=== PATIENT | female | born 1945 | race Caucasian/White ===

== ENCOUNTER 2024-08-27 03:54 | Emergency (ER) | payer MEDICARE, SELFPAY ==
[2024-08-27 03:56] VITALS: BMI 16.4
--- NOTE | 2024-08-27 04:15 | EKG_ITS ---
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
[2024-08-27 04:28] VITALS: BP 136/73; PULSE 90; RESP 20; TEMP 36.6; O2SAT 93
--- NOTE | 2024-08-27 04:33 | XR_ITS ---
Examination: PA chest single view Technique: Upright PA chest single view Exam date 9: August 27, 2024 0442 hrs. Comparison 04/24/2024 Indications: Chest pain body aches today. Findings: Extensive interstitial nodular densities throughout both lungs again noted Normal heart size Hyperexpansion Significant osteopenia Impression: Again noted extensive interstitial nodular disease throughout the lungs, please see the CT chest report December 25, 2023, consider repeat high resolution CT chest without contrast to assess progression of this parenchymal disease Differential would include chronic infiltrates, active pneumonia, underlying metastatic pulmonary nodular disease not excluded
--- NOTE | 2024-08-27 04:34 | PD.EDADULT ---
ED General RME/HPI General Chief complaint: General Adult/Misc Complain Stated complaint: chest pain/body pain x 1 day. Time Seen by Provider: 08/27/24 04:14 Arrival date/time: 08/27/24 03:54 RME / HPI RME / HPI narrative: Dr. Rome?s Main ED Evaluation: 79yo female with pmhx HTN, bronchiectasis presents to the ED for complaints of generalized body aches, chest pain, and a headache x 3 days. Patient states her symptoms have been persistent for the last 3 days and have not gotten any better, so she came in for evaluation. Patient reports her chest pain radiates to her back. She reports associated chronic cough and chills. She denies any fever, sweating, runny nose, sore throat or any other associated symptoms. Patient states she usually does her breathing treatments BID at home, but hasn't in the last 10 days due to having family problems. Related Data Home Medications ?Medication ?Instructions ?Recorded ?Confirmed alprazolam 0.25 mg tablet 0.25 mg PO QDAY PRN Anxiety 06/07/22 12/26/23 linaclotide 72 mcg capsule 72 mcg PO QDAY 06/07/22 12/26/23 (Linzess) olmesartan 20 mg tablet 10 mg PO QDAY 06/07/22 12/25/23 rivaroxaban 15 mg tablet (Xarelto) 15 mg PO QPM 06/07/22 12/25/23 tiotropium 2.5 mcg-olodaterol 2.5 2 inh inhalation QDAY 06/07/22 12/26/23 mcg/actuation mist for inhalation (Stiolto Respimat) albuterol sulfate 2.5 mg/3 mL 2.5 mg inhalation BID 12/25/23 12/26/23 (0.083 %) solution for nebulization amiodarone 200 mg tablet 100 mg PO QDAY 12/25/23 12/25/23 aspirin 81 mg capsule 81 mg PO QDAY 12/25/23 12/25/23 Allergies Allergy/AdvReac Type Severity Reaction Status Date / Time azithromycin Allergy Severe Nausea Verified 09/25/23 14:10 dexamethasone [From Decadron] Allergy Severe Wheezing Verified 09/25/23 14:10 hydrocortisone Allergy Severe Wheezing Verified 09/25/23 14:10 [From Solu-Cortef] levofloxacin [From Levaquin] Allergy Severe Vomiting Verified 09/25/23 14:10 methylprednisolone Allergy Severe Wheezing Verified 09/25/23 14:10 prednisone Allergy Severe Wheezing Verified 09/25/23 14:10 Review of Systems Review of Systems Systems Reviewed: All systems reviewed, normal except as documented Past Medical History Past Medical History CARDIAC: Positive Myocardial Infarction, Atrial Fibrillation and Hypertension; Negative Cardiac Disorders or Congestive Heart Failure RESPIRATORY: Positive Chronic Obstructive Pulmonary Disease (COPD); Negative Asthma GASTROINTESTINAL: Positive Gastrointestinal Disorders (constipation) GENITOURINARY: Negative Renal Disease ENDOCRINE: Negative Diabetes Mellitus Type 1 or Diabetes Mellitus Type 2 HEMATOLOGIC: Negative Sickle Cell Disease PSYCHO/SOCIAL: Positive Anxiety Surgical History SURGICAL: Positive Cardiac Surgery Social History SMOKING STATUS: Never smoker ED Exam Narrative Physical exam: GENERAL APPEARANCE: alert and oriented x 4, well-developed, well-nourished, no acute distress VITALS: All vitals were reviewed and the pulse ox is 93% on room air, which is normal according to my interpretation. HEENT: Normocephalic, atraumatic; pupils equal, round, reactive to light; EOMI; mucous membranes pink, moist; oropharynx clear NECK: Supple LUNGS: bilateral scattered wheezes, rales and rhonchi at the right base HEART: Regular rate, regular rhythm; normal S1, S2; no murmurs ABDOMEN: non distended; normal BS; soft, no tenderness, no guarding, no rebound; no masses, no organomegaly, no hernia BACK: no CVA tenderness EXTREMITIES: atraumatic; no edema NEUROLOGIC: awake; alert and oriented x4; cranial nerves II-XII grossly intact; no focal sensory or motor deficits PSYCHIATRIC: appropriate mood and affect SKIN: warm, dry, normal color; no rashes Course Course Course Narrative: CXR is ordered for determining the etiology of cough. Quality Measures none Orders Category Date Time Status Construction Job Titles STAT Care 08/27/24 04:34 Active Continuous Pulse Oximetry STAT Care 08/27/24 04:34 Completed EKG (ED ONLY) *Do not use* NOW Care 08/27/24 04:15 Completed Insert IV NOW Care 08/27/24 04:34 Active NPO STAT Care 08/27/24 04:34 Active Strict Intake and Output Routine Care 08/27/24 04:34 Ordered EKG (ED Only) Stat Exams 08/27/24 04:15 Draft XR chest 1V portable Stat Exams 08/27/24 04:33 Taken B-Type Natriuretic Peptide Stat Lab 08/27/24 05:09 Received CBC Stat Lab 08/27/24 05:09 Received Comprehensive Metabolic Panel Stat Lab 08/27/24 05:09 Received Lactate (Lactic Acid) Stat Lab 08/27/24 05:09 Received Magnesium Stat Lab 08/27/24 05:09 Received Procalcitonin Stat Lab 08/27/24 05:09 Received Troponin I Stat Lab 08/27/24 05:09 Received Vital Signs Vital signs: Vital Signs Temperature 98 F 08/27/24 04:28 Pulse Rate 90 08/27/24 04:28 Respiratory Rate 20 08/27/24 04:28 Blood Pressure 136/73 H 08/27/24 04:28 Pulse Oximetry (%) 93 L 08/27/24 04:28 Oxygen Delivery Method Room Air 08/27/24 04:28 [facility] Patient data External records reviewed:: [facility] [place] (Per chart review, patient was seen here on 04/24/24 for hypertension.) Clinical information provided by:: patient Social determinants that could affect healthcare access:: none Patient has the following chronic illnesses:: bronchiectasis, HTN How is presenting disease/condition affected by chronic disease/condition?: uneffected by Evaluation data The following diagnostics were reviewed and interpreted by me:: lab results, radiology exam(s) and EKG tracing(s) Lab and/or radiology exams considered but not ordered:: none Interpretation Summary: Labs are pending at the time of sign out. CXR shows hyperinflation, chronic lung changes, no infiltrates, according to my interpretation. EKG done at 0422, NSR, rate of 86, normal axis, no ectopy, nonspecific ST abnormalities in the precordial leads, no STEMI, according to my interpretation. Medications Medications considered but not ordered:: none Medication administrations:: see above Consultations Consultation(s) initiated? (list below): No Diagnosis Differential Diagnosis ED Complaint MDM: pneumonia, dehydration, electrolyte abnormality, Influenza Most likely diagnosis given after review of the tests above:: final dx pending at sign out Admission Indicated Admission indicated?: not indicated Explain why admission is indicated or not indicated:: Labs are pending at the time of signout. Admission Request Was there a request for admission?: No Disposition Plan Disposition Plan: other (specify) (Signed out to Dr. Goldberg at 0600 pending labs.) Medical Decision Making MDM Narrative MDM Narrative: Scribe Attestation: 08/27/24 Caridad Bond am scribing for and in the presence of Dr. Rome. Differential Diagnosis Differential Diagnosis: pneumonia, dehydration, electrolyte abnormality, Influenza Lab Data 08/27/24 05:09 08/27/24 05:09 Discharge Plan Plan Disposition Comment: Stable at sign out. Prescriptions/Referrals Prescriptions/Med Rec: No Action alprazolam 0.25 mg tablet 0.25 mg PO QDAY PRN (Reason: Anxiety) Patient Comments: TAKE 1 TAB BY MOUTH DAILY NEEDED FOR ANXIETY olmesartan 20 mg tablet 10 mg PO QDAY Patient Comments: TAKE 1 TABLET BY MOUTH EVERY DAY Xarelto 15 mg tablet 15 mg PO QPM Patient Comments: TAKE 1 TABLET BY MOUTH ONE TIME DAILY. Stiolto Respimat 2.5-2.5 mcg/actuation mist 2 inh INHALATION QDAY Patient Comments: INHALE 2 PUFFS BY MOUTH INTO THE LUNGS DAILY Linzess 72 mcg capsule 72 mcg PO QDAY Patient Comments: TAKE 1 CAPSULE BY MOUTH EVERY DAY amiodarone 200 mg tablet 100 mg PO QDAY Patient Comments: TAKE 1 TABLET BY MOUTH EVERY DAY aspirin 81 mg Capsule 81 mg PO QDAY albuterol sulfate 2.5 mg /3 mL (0.083 %) solution for nebulization 2.5 mg inhalation BID Patient Comments: USE ONE VIAL VIA NEBULIZER TWICE A DAY NEEDED Referrals: Isamar Patel MD [Primary Care Provider] - In 1 week Problem List Clinical Impression: Chest pain, Body aches Patient/Caregiver Discharge Instructions Print Language: Chinese
--- NOTE | 2024-08-27 04:37 | PC.NURSE ---
Pt to room 4 at this time from lobby.
[2024-08-27 05:17] VITALS: PULSE 74
[2024-08-27 05:44] LABS: Basophils % (Auto) 0 % (0-2.5); Eosinophils % (Auto) 0 % (0-10); Hematocrit 36.8 % (36.0-46.0); Hemoglobin 12.3 g/dL (12.0-16.0); Immature Granulocytes % (Auto) 1 % (0-0); Immature Granulocytes Auto 0.04 Thou/mm3 (0.00-0.00); Lymphocytes # (Auto) 0.3 Thou/mm3 (1.0-4.8); Lymphocytes % (Auto) 3 % (10-50); Mean Corpuscular HGB Conc 33.4 g/dl (31.0-37.0); Mean Corpuscular Hemoglobin 28.5 pg (25.0-35.0); Mean Corpuscular Volume 85 fL (80-100); Monocytes # (Auto) 0.6 Thou/mm3 (0.0-0.8); Monocytes % (Auto) 8 % (0-12); Neutrophils # (Auto) 6.9 Thou/mm3 (1.8-7.7); Neutrophils % (Auto) 88 % (37-80); Nucleated Red Blood Cell % 0 /100 WBC (0); Platelet Count 298 Thou/mm3 (140-440); RDW Standard Deviation 57.9 fL (36.4-46.3); Red Blood Count 4.31 Miln/mm3 (4.00-5.20); White Blood Count 7.8 Thou/mm3 (3.6-11.0)
--- NOTE | 2024-08-27 05:54 | PC.NURSE ---
at the bedside.
[2024-08-27 06:00] VITALS: BP 151/86; PULSE 78; RESP 20; O2SAT 94
[2024-08-27 06:16] LABS: Alanine Aminotransferase 19 U/L (10-49); Albumin, Serum 4.9 gm/dL (3.4-4.8); Albumin/Globulin Ratio 1.6 (1.2-2.2); Alkaline Phosphatase 148 U/L (46-116); Anion Gap 9 (7-16); Aspartate Amino Transferase 27 U/L (0-34); BUN/Creatinine Ratio 14 Ratio (12-20); Bilirubin,Total 0.4 mg/dL (0.3-1.2); Blood Urea Nitrogen 11 mg/dL (9-23); Calcium 9.6 mg/dL (8.3-10.6); Calcium (Corrected) 9.6 mg/dL (8.5-10.1); Carbon Dioxide 25.9 mMol/L (20.0-31.0); Chloride 92 mMol/L (98-107); Creatinine (Component) 0.8 mg/dL (0.6-1.3); Estimated Creatinine Clearance 35.5 mL/min (>60); Globulin 3.1 gm/dL (2.3-3.5); Glucose 106 mg/dL (74-106); Magnesium 1.8 mg/dL (1.6-2.6); Osmolality,Calculated 254 (275-295); Potassium 4.8 mMol/L (3.4-5.1); Sodium 127 mMol/L (136-145); eGFR > 60 See Note
[2024-08-27 06:28] LABS: B-Type Natriuretic Peptide 223 pg/mL (0-100)
[2024-08-27 06:37] LABS: Procalcitonin 0.13 ng/ml (0.0-0.49); Troponin I < 0.020 ng/mL (0.0-0.045)
[2024-08-27] MEDS: ACETAMINOPHEN w/COD 300-30 TABLET 2 TAB PO (07:05)
[2024-08-27 07:07] LABS: Strep A Rapid Negative (Negative)
[2024-08-27 07:53] LABS: Respiratory Syncytial Virus Ag Negative (Negative)
--- NOTE | 2024-08-27 08:01 | PD.EDADDENDU ---
Emergency Room Addendum <Emelia Mathew - Last Filed: 08/27/24 08:14> Addendum Narrative: 0600: Care assumed from Dr. Rome, the previous shift emergency physician. Past medical, surgical, social and family history reviewed. Vitals and home medications reviewed. I will assume the care of the patient at this time pending labs, reassessment, and final disposition. Please refer to the emergency department record for history and examination from initial visit.? Nursing notes reviewed by me. Vital signs reviewed by me. [facility] medical records reviewed by me. <Luis Goldberg MD - Last Filed: 08/27/24 08:19> Addendum Narrative: 0600: Care assumed from Dr. Rome, the previous shift emergency physician. Past medical, surgical, social and family history reviewed. Vitals and home medications reviewed. I will assume the care of the patient at this time pending labs, reassessment, and final disposition. Please refer to the emergency department record for history and examination from initial visit.? Nursing notes reviewed by me. Vital signs reviewed by me. [facility] medical records reviewed by me. I reviewed all diagnostic test results. My interpretation of the EKG is sinus rhythm with nonspecific ST?T changes. My interpretation of the chest x-ray is infiltrates. Blood tests unremarkable. COVID/influenza/strep/RSV negative. At this point, diagnoses include pneumonia. Treatment here included Rocephin and Zithromax and two Tylenol #3. Significant improvement noted. Recommended a trial of outpatient treatment. Based on my best medical judgment, made decision no further evaluation or treatment indicated at this time. Patient understands and agrees to the discharge instructions customized and printed, see below. Discharge instructions from Dr. Goldberg: --No physical exertion for 3 days to help rest the lungs. ?-No smoking or exposure to smoking or pets or dust or cold or humidity. --Zithromax and cefdinir to kill the germs causing the pneumonia. --Tylenol with codeine for severe cough or pain. --See a private doctor on 08/30/2024 for recheck. Ask to review all test results and official radiology reports, to make sure you receive all necessary follow-ups and monitoring. --Seek immediate medical care with worsening or with any concerns. Luis Goldberg MD
[2024-08-27 08:24] VITALS: BP 125/60; PULSE 72; RESP 20; TEMP 37.4; O2SAT 92
[2024-08-27] MEDS: cefTRIAXone 1,000 MG in SODIUM CHLORIDE 0.9% (P) 50 ML 100 MG IV (09:17)
[2024-08-27] MEDS: AZITHROMYCIN 250 MG TABLET 500 MG PO (09:17)
[2024-08-27 10:35] VITALS: BP 129/68; PULSE 63; RESP 18; TEMP 37.3; O2SAT 94
== END 2024-08-27 10:55 | disposition home or self-care (01) ==
PROVIDERS: Emergency Medicine; Emergency Provider Emergency Medicine; PCP Internal Medicine
DX: R07.9 Chest pain, unspecified (principal); I10 Essential (primary) hypertension
CPT/HCPCS: 36415; 71045; 80053; 83605; 83735; 83880; 84145; 84484; 85025; 87400; 87634; 87651; 87811; 93005; 96365; 99284; J0696; J7050; A9270

== ENCOUNTER → 2024-09-30 | Outpatient (CLI) | payer MEDICARE, SELFPAY ==
[2024-09-30 11:34] LABS: Basophils # (Auto) 0.1 Thou/mm3 (0.0-0.2); Basophils % (Auto) 1 % (0-2.5); Eosinophils % (Auto) 0 % (0-10); Hematocrit 37.6 % (36.0-46.0); Hemoglobin 12.4 g/dL (12.0-16.0); Immature Granulocytes % (Auto) 1 % (0-0); Immature Granulocytes Auto 0.08 Thou/mm3 (0.00-0.00); Lymphocytes # (Auto) 1.6 Thou/mm3 (1.0-4.8); Lymphocytes % (Auto) 15 % (10-50); Mean Corpuscular Volume 88 fL (80-100); Monocytes # (Auto) 0.9 Thou/mm3 (0.0-0.8); Monocytes % (Auto) 9 % (0-12); Neutrophils # (Auto) 7.9 Thou/mm3 (1.8-7.7); Neutrophils % (Auto) 75 % (37-80); Nucleated Red Blood Cell % 0 /100 WBC (0); Platelet Count 606 Thou/mm3 (140-440); RDW Standard Deviation 55.4 fL (36.4-46.3); Red Blood Count 4.27 Miln/mm3 (4.00-5.20); White Blood Count 10.5 Thou/mm3 (3.6-11.0)
[2024-09-30 12:13] LABS: Alanine Aminotransferase 25 U/L (10-49); Albumin, Serum 4.4 gm/dL (3.4-4.8); Alkaline Phosphatase 123 U/L (46-116); Anion Gap 7 (7-16); Aspartate Amino Transferase 27 U/L (0-34); BUN/Creatinine Ratio 26 Ratio (12-20); Bilirubin,Direct < 0.1 mg/dL (0.0-0.3); Bilirubin,Total 0.3 mg/dL (0.3-1.2); Blood Urea Nitrogen 18 mg/dL (9-23); Carbon Dioxide 26.2 mMol/L (20.0-31.0); Chloride 100 mMol/L (98-107); Creatinine (Component) 0.7 mg/dL (0.6-1.3); Glucose 91 mg/dL (74-106); Osmolality,Calculated 268 (275-295); Potassium 5.6 mMol/L (3.4-5.1); Sodium 133 mMol/L (136-145); Total Protein 7.5 gm/dL (5.7-8.2); eGFR > 60 See Note
== END | disposition home or self-care (01) ==
LOC: COPL 10:44
PROVIDERS: PCP Internal Medicine; Referring Provider Internal Medicine; Visit Provider Internal Medicine
DX: J47.1 Bronchiectasis with (acute) exacerbation (principal)
CPT/HCPCS: 36415; 80048; 80076; 85025; 87015; 87102; 87116; 87206

== ENCOUNTER → 2024-10-04 | Outpatient (CLI) | payer MEDICARE, SELFPAY ==
[2024-10-04 12:49] LABS: Cult AFB Sendout- Sputum* See Sep Rpt; Smear, Acid Fast* See Sep Rpt
== END | disposition home or self-care (01) ==
LOC: SLDO 12:37
PROVIDERS: Referring Provider Internal Medicine; Visit Provider Internal Medicine
DX: J47.1 Bronchiectasis with (acute) exacerbation (principal)
CPT/HCPCS: 87015; 87116; 87206

== ENCOUNTER → 2024-10-18 | Outpatient (CLI) | payer MEDICARE, SELFPAY ==
[2024-10-18 15:03] LABS: Collection Type, Urine Clean Catch
[2024-10-18 17:10] LABS: Bilirubin,Urine Negative (Negative); Blood,Urine 3+ (Negative); Clarity,Urine Turbid (Clear/Hazy); Color,Urine Yellow (Lt Yel-Yel); Glucose, Urine Negative (Negative); Ketones,Urine Trace (Negative); Leukocyte Esterase,Urine Positive (Negative); Nitrite,Urine Negative (Negative); Protein,Urine Trace (Neg - Trace); RBC,Urine 225 /hpf (0-3); Specific Gravity,Urine 1.023 (1.001-1.035); Squamous Epithelial Cell,Urine < 1 /hpf (0-5); WBC,Urine 15 /hpf (0-5)
[2024-10-18 17:12] LABS: Culture Indicated,Urine Yes
== END | disposition home or self-care (01) ==
LOC: SLDO 14:59
PROVIDERS: Referring Provider Internal Medicine; Visit Provider Internal Medicine
DX: N39.0 Urinary tract infection, site not specified (principal)
CPT/HCPCS: 81001; 87086

== ENCOUNTER 2024-10-23 14:59 | Emergency (ER) | payer MEDICARE, SELFPAY ==
[2024-10-23 15:47] VITALS: BP 165/88; PULSE 77; RESP 20; TEMP 36.9; O2SAT 97; BMI 16.7
--- NOTE | 2024-10-23 15:53 | EKG_ITS ---
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
--- NOTE | 2024-10-23 15:54 | PD.EDRME ---
Rapid Medical Screening Exam E Arrival date/time: 10/23/24 14:59 79-year-old female with a history of COPD, hypertension presents to the emergency room with a chief complaint of dizziness, elevated blood pressure x 3 days. Patient states she was also having a headache and generalized weakness. Patient states she would not like any radiation done during her visit. I have greeted and performed a focused initial assessment of this patient. A comprehensive ED assessment and evaluation of the patient, analysis of all test results, and completion of the medical decision making process will be conducted by additional ED providers. Chief Complaint: Dizziness Time Seen by Provider: 10/23/24 15:35 Vital signs: Vital Signs Temperature 98.4 F 10/23/24 15:47 Pulse Rate 77 10/23/24 15:47 Respiratory Rate 20 10/23/24 15:47 Blood Pressure 165/88 H 10/23/24 15:47 Pulse Oximetry (%) 97 10/23/24 15:47 Oxygen Delivery Method Room Air 10/23/24 15:47 Vital signs reviewed by provider: Yes
--- NOTE | 2024-10-23 15:56 | XR_ITS ---
Examination: PA lateral chest 2 views TECHNIQUE: Upright PA lateral chest 2 views Exam date and time: October 23, 2024 1627 hours Comparison August 27, 2024 INDICATIONS: High blood pressure shortness of breath beginning 2 days ago. FINDINGS: Again noted extensive bilateral parenchymal disease Please see the CT chest report December 25, 2023 Normal heart size Significant hyperexpansion Significant osteopenia IMPRESSION: Extensive nodular parenchymal disease again noted, please see the CT chest report December 25, 2023
[2024-10-23 16:40] LABS: Basophils % (Auto) 1 % (0-2.5); Eosinophils % (Auto) 0 % (0-10); Hematocrit 38.5 % (36.0-46.0); Immature Granulocytes % (Auto) 0 % (0-0); Immature Granulocytes Auto 0.02 Thou/mm3 (0.00-0.00); Lymphocytes # (Auto) 0.9 Thou/mm3 (1.0-4.8); Lymphocytes % (Auto) 15 % (10-50); Mean Corpuscular HGB Conc 33.8 g/dl (31.0-37.0); Mean Corpuscular Hemoglobin 29.5 pg (25.0-35.0); Mean Corpuscular Volume 87 fL (80-100); Monocytes # (Auto) 0.5 Thou/mm3 (0.0-0.8); Monocytes % (Auto) 8 % (0-12); Neutrophils # (Auto) 4.8 Thou/mm3 (1.8-7.7); Neutrophils % (Auto) 77 % (37-80); Nucleated Red Blood Cell % 0 /100 WBC (0); Platelet Count 389 Thou/mm3 (140-440); RDW Standard Deviation 47.2 fL (36.4-46.3); Red Blood Count 4.41 Miln/mm3 (4.00-5.20); White Blood Count 6.2 Thou/mm3 (3.6-11.0)
[2024-10-23 16:59] LABS: Alanine Aminotransferase 13 U/L (10-49); Albumin, Serum 4.9 gm/dL (3.4-4.8); Albumin/Globulin Ratio 1.4 (1.2-2.2); Alkaline Phosphatase 104 U/L (46-116); Anion Gap 9 (7-16); Aspartate Amino Transferase 21 U/L (0-34); BUN/Creatinine Ratio 24 Ratio (12-20); Bilirubin,Total 0.5 mg/dL (0.3-1.2); Blood Urea Nitrogen 17 mg/dL (9-23); Calcium 10.4 mg/dL (8.3-10.6); Calcium (Corrected) 10.4 mg/dL (8.5-10.1); Carbon Dioxide 24.3 mMol/L (20.0-31.0); Chloride 97 mMol/L (98-107); Creatinine (Component) 0.7 mg/dL (0.6-1.3); Estimated Creatinine Clearance 41.3 mL/min (>60); Globulin 3.5 gm/dL (2.3-3.5); Glucose 93 mg/dL (74-106); Osmolality,Calculated 262 (275-295); Potassium 4.9 mMol/L (3.4-5.1); Sodium 130 mMol/L (136-145); Total Protein 8.4 gm/dL (5.7-8.2); Troponin I < 0.020 ng/mL (0.0-0.045); eGFR > 60 See Note
[2024-10-23 17:01] LABS: Collection Type, Urine Clean Catch
[2024-10-23 17:10] LABS: Bilirubin,Urine Negative (Negative); Blood,Urine 3+ (Negative); Clarity,Urine Clear (Clear/Hazy); Color,Urine Yellow (Lt Yel-Yel); Glucose, Urine Negative (Negative); Hyaline Casts,Urine < 1 /hpf (0-1); Ketones,Urine 1+ (Negative); Leukocyte Esterase,Urine Negative (Negative); Nitrite,Urine Negative (Negative); Protein,Urine Negative (Neg - Trace); RBC,Urine 284 /hpf (0-3); Specific Gravity,Urine 1.015 (1.001-1.035); Squamous Epithelial Cell,Urine < 1 /hpf (0-5); Urobilinogen,Urine Negative mg/dL (0.0-1.0); WBC,Urine 6 /hpf (0-5)
--- NOTE | 2024-10-23 17:51 | PD.EDDIZZY ---
ED Dizzyness RME/HPI General Chief Complaint: Dizziness Stated Complaint: DIZZINESS, HIGH BLOOD PRESSURE X YESTERDAY Time Seen by Provider: 10/23/24 15:35 Source: patient and family Arrival date/time: 10/23/24 14:59 79-year-old female with past medical history of COPD, hypertension, and valley fever presents to the emergency department complaining of intermittent elevated blood pressure and dizziness that have been occurring for the last 3 days. Patient reports is going through difficult times at home and has gotten very little sleep lately. Patient denies any fever, chills, cough, vision changes, vomiting, or any other associated symptom. Mode of arrival: ambulatory Limitations: no limitations RME / HPI RME / HPI Narrative: 10/23/24 14:59 79-year-old female with a history of COPD, hypertension presents to the emergency room with a chief complaint of dizziness, elevated blood pressure x 3 days. Patient states she was also having a headache and generalized weakness. Patient states she would not like any radiation done during her visit. I have greeted and performed a focused initial assessment of this patient. A comprehensive ED assessment and evaluation of the patient, analysis of all test results, and completion of the medical decision making process will be conducted by additional ED providers. Related Data Home Medications ?Medication ?Instructions ?Recorded ?Confirmed alprazolam 0.25 mg tablet 0.25 mg PO QDAY PRN Anxiety 06/07/22 12/26/23 linaclotide 72 mcg capsule 72 mcg PO QDAY 06/07/22 12/26/23 (Linzess) olmesartan 20 mg tablet 10 mg PO QDAY 06/07/22 12/25/23 rivaroxaban 15 mg tablet (Xarelto) 15 mg PO QPM 06/07/22 12/25/23 tiotropium 2.5 mcg-olodaterol 2.5 2 inh inhalation QDAY 06/07/22 12/26/23 mcg/actuation mist for inhalation (Stiolto Respimat) albuterol sulfate 2.5 mg/3 mL 2.5 mg inhalation BID 12/25/23 12/26/23 (0.083 %) solution for nebulization amiodarone 200 mg tablet 100 mg PO QDAY 12/25/23 12/25/23 aspirin 81 mg capsule 81 mg PO QDAY 12/25/23 12/25/23 Previous Rx's ?Medication ?Instructions ?Recorded acetaminophen 300 mg-codeine 30 mg 2 tab PO TID PRN pain #20 tabs 08/27/24 tablet cefdinir 300 mg capsule 300 mg PO BID #14 caps 08/27/24 meclizine 25 mg tablet 25 mg PO BID PRN dizziness #14 tabs 10/23/24 Allergies Allergy/AdvReac Type Severity Reaction Status Date / Time azithromycin Allergy Severe Nausea Verified 10/23/24 15:01 dexamethasone (From Decadron) Allergy Severe Wheezing Verified 10/23/24 15:01 hydrocortisone (From Allergy Severe Wheezing Verified 10/23/24 15:01 Solu-Cortef) levofloxacin (From Levaquin) Allergy Severe Vomiting Verified 10/23/24 15:01 methylprednisolone Allergy Severe Wheezing Verified 10/23/24 15:01 prednisone Allergy Severe Wheezing Verified 10/23/24 15:01 Review of Systems Review of Systems Systems Reviewed: All systems reviewed, normal except as documented Constitutional Constitutional: Reports system reviewed and no additional complaints, except as documented, Denies body ache(s), Denies chills and Denies fever(s) Eyes Eyes: Reports system reviewed and no additional complaints, except as documented and Denies change in vision ENT Ears, Nose, Mouth, and Throat: Reports system reviewed and no additional complaints, except as documented, Denies disequilibrium, Denies dizziness, Denies sore throat and Reports vertigo Cardiovascular Cardiovascular: Reports system reviewed and no additional complaints, except as documented, Denies chest pain and Denies dyspnea Respiratory Respiratory: Reports system reviewed and no additional complaints, except as documented, Denies chest congestion, Denies cough and Denies dyspnea Gastrointestinal Gastrointestinal: Reports system reviewed and no additional complaints, except as documented, Denies abdominal pain, Denies nausea and Denies vomiting Musculoskeletal Musculoskeletal: Reports system reviewed and no additional complaints, except as documented, Denies abnormal gait and Denies arthralgias Integumentary/Breasts Skin/Breast: Reports system reviewed and no additional complaints, except as documented, Denies erythema, Denies rash and Denies wounds Neurologic Neurologic: Reports system reviewed and no additional complaints, except as documented, Denies abnormal gait, Denies disequilibrium, Denies dizziness and Reports vertigo ED Exam General Limitations: Present no limitations General appearance: Present alert and in no apparent distress Head Head exam: Present atraumatic Eye Eye exam: Present normal appearance, PERRL and EOMI ENT ENT exam: Present normal exam, normal oropharynx and mucous membranes moist Neck Neck exam: Present normal inspection, full ROM and trachea midline Chest Chest inspection: Present normal inspection and symmetric chest wall rise Respiratory Respiratory exam: Present normal lung sounds bilaterally Cardiovascular Cardiovascular exam: Present regular rate, normal rhythm and normal heart sounds Abdominal Exam Abdominal exam: Present soft and normal bowel sounds Extremities Exam Extremities exam: Present normal inspection and full ROM Back Exam Back exam: Present normal inspection and full ROM Neurological Exam Neurological exam: Present alert, oriented X3 and CN II-XII intact Psychiatric Psychiatric exam: Present normal affect and normal mood Skin Skin exam: Present warm, dry, intact and normal color Course Quality Measures none Orders Category Date Time Status EKG (ED ONLY) *Do not use* NOW Care 10/23/24 15:53 Completed EKG (ED Only) Stat Exams 10/23/24 15:53 Draft XR chest 2V Stat Exams 10/23/24 15:56 Completed B-Type Natriuretic Peptide Stat Lab 10/23/24 16:08 Completed CBC Stat Lab 10/23/24 16:08 Completed Comprehensive Metabolic Panel Stat Lab 10/23/24 16:08 Completed Magnesium Stat Lab 10/23/24 16:08 Completed Troponin I Stat Lab 10/23/24 16:08 Completed Urinalysis Stat Lab 10/23/24 16:25 Completed Vital Signs Vital signs: Vital Signs Temperature 98.4 F 10/23/24 15:47 Pulse Rate 77 10/23/24 15:47 Respiratory Rate 20 10/23/24 15:47 Blood Pressure 165/88 H 10/23/24 15:47 Pulse Oximetry (%) 97 10/23/24 15:47 Oxygen Delivery Method Room Air 10/23/24 15:47 97% RA WNL. Procedures -ED EKG Interpretation #1: Date of EK10/23/24 Time of EK:59 Rate: 70 Interpretation: Interpreted by me EKG Impression: Normal sinus rhythm, No acute ST-T changes and No ectopy Dizziness MDM Narrative MDM Narrative:: 79-year-old female with past medical history of COPD, hypertension, and valley fever presents to the emergency department complaining of intermittent elevated blood pressure and dizziness that have been occurring for the last 3 days. Patient reports is going through difficult times at home and has gotten very little sleep lately. Patient denies any fever, chills, cough, vision changes, vomiting, or any other associated symptom. CBC unremarkable. CMP unremarkable. Elevated BNP 221 no edema or sob. Troponin negative and ekg SR. U/A leukocytes and rbcs patient currently on macrobid antibiotic. Patient GCS 15 with steady gait. Stable for d/c with close f/u. Family and patient agree with plan. Patient data External records reviewed:: [facility] previous records Clinical information provided by:: patient and family Social determinants that could affect healthcare access:: none Patient has the following chronic illnesses:: see chart How is presenting disease/condition affected by chronic disease/condition?: uneffected by Evaluation data The following diagnostics were reviewed and interpreted by me:: lab results, radiology exam(s) and EKG tracing(s) Lab and/or radiology exams considered but not ordered:: ordered Interpretation Summary: interpreted by me Medications / Prescriptions Medications or Prescriptions considered but not ordered:: n/a Medication administrations:: n/a Consultations Consultation(s) initiated? (list below): No Diagnosis Dizziness Differential Diagnosis: benign paroxysmal positional vertigo, orthostatic hypotension, cerebrovascular accident, acute vestibular neuronitis and transient cerebral ischemia Most likely diagnosis given after review of the tests above:: elevated blood pressure reading with diagnosis of hypertension Admission Indicated Admission indicated?: not indicated Admission Request Was there a request for admission?: No Disposition Plan Disposition Plan: Discharge Discharge Attestation Discharge Attestation: The patient and all family members were given an opportunity to ask questions and understood the discharge instructions. Discharge instructions specifically effects, indications for sooner follow up or return to the emergency department, and the expected course of current diagnosis. Patient condition: Stable Discharge Plan Plan Patient Disposition: HOME (Self Care) Disposition Comment: Stable Prescriptions/Referrals Prescriptions/Med Rec: New meclizine 25 mg tablet 25 mg PO BID PRN (Reason: dizziness) Qty: 14 0RF No Action alprazolam 0.25 mg tablet 0.25 mg PO QDAY PRN (Reason: Anxiety) Patient Comments: TAKE 1 TAB BY MOUTH DAILY NEEDED FOR ANXIETY olmesartan 20 mg tablet 10 mg PO QDAY Patient Comments: TAKE 1 TABLET BY MOUTH EVERY DAY Xarelto 15 mg tablet 15 mg PO QPM Patient Comments: TAKE 1 TABLET BY MOUTH ONE TIME DAILY. Stiolto Respimat 2.5-2.5 mcg/actuation mist 2 inh INHALATION QDAY Patient Comments: INHALE 2 PUFFS BY MOUTH INTO THE LUNGS DAILY Linzess 72 mcg capsule 72 mcg PO QDAY Patient Comments: TAKE 1 CAPSULE BY MOUTH EVERY DAY amiodarone 200 mg tablet 100 mg PO QDAY Patient Comments: TAKE 1 TABLET BY MOUTH EVERY DAY aspirin 81 mg Capsule 81 mg PO QDAY albuterol sulfate 2.5 mg /3 mL (0.083 %) solution for nebulization 2.5 mg inhalation BID Patient Comments: USE ONE VIAL VIA NEBULIZER TWICE A DAY NEEDED acetaminophen-codeine 300-30 mg tablet 2 tab PO TID MDD 6 PRN (Reason: pain) Qty: 20 0RF cefdinir 300 mg capsule 300 mg PO BID Qty: 14 0RF Referrals: Isamar Patel MD [Primary Care Provider] - In 1 week Problem List Clinical Impression: Elevated blood pressure reading with diagnosis of hypertension Patient/Caregiver Discharge Instructions Discharge Activity: activity as tolerated Education Materials: Blood Pressure Check Steps, ED Hypertension, Established Additional Instructions: Take medication meclizine as needed for any dizziness. Keep diary and document blood pressure readings at least twice a day and take to your primary care provider in 2 to 3 days for possible increase in medication if blood pressure continues to be elevated. Return to the emergency department if you develop any vomiting, worsening dizziness, worsening symptoms, or as needed. Print Language: Guyanese Stand Alone Forms: Lucy Award Info., Patient Portal Info Letter PA/KELLI Supervising Physician PA/VAMP MARKER Supervising Physician: Dr. Goldberg
[2024-10-23 18:37] LABS: B-Type Natriuretic Peptide 221 pg/mL (0-100)
== END 2024-10-23 19:00 | disposition home or self-care (01) ==
PROVIDERS: Nurse Practitioner Family; Emergency Provider Emergency Medicine; PCP Internal Medicine
DX: I10 Essential (primary) hypertension (principal); R94.31 Abnormal electrocardiogram [ECG] [EKG]
CPT/HCPCS: 36415; 71046; 80053; 81001; 83735; 83880; 84484; 85025; 93005; 99283

== ENCOUNTER → 2024-11-28 | Outpatient (CLI) | payer MEDICARE, SELFPAY ==
[2024-11-28 11:57] LABS: Collection Type, Urine Clean Catch
[2024-11-28 14:10] LABS: Bilirubin,Urine Negative (Negative); Blood,Urine 2+ (Negative); Clarity,Urine Clear (Clear/Hazy); Color,Urine Yellow (Lt Yel-Yel); Culture Indicated,Urine Not Indicated; Glucose, Urine Negative (Negative); Ketones,Urine Negative (Negative); Leukocyte Esterase,Urine Positive (Negative); Nitrite,Urine Negative (Negative); PH,Urine 6.5 (5.0-7.0); Protein,Urine Negative (Neg - Trace); RBC,Urine 148 /hpf (0-3); Specific Gravity,Urine 1.015 (1.001-1.035); Squamous Epithelial Cell,Urine 1 /hpf (0-5); Urobilinogen,Urine Negative mg/dL (0.0-1.0); WBC,Urine 5 /hpf (0-5)
== END | disposition home or self-care (01) ==
PROVIDERS: PCP Internal Medicine; Referring Provider Internal Medicine; Visit Provider Internal Medicine
DX: N39.0 Urinary tract infection, site not specified (principal)
CPT/HCPCS: 81001

== ENCOUNTER → 2025-01-02 | Outpatient (CLI) | payer MEDICARE, SELFPAY ==
[2025-01-02 12:49] LABS: Basophils % (Auto) 1 % (0-2.5); Eosinophils % (Auto) 0 % (0-10); Hemoglobin 13.7 g/dL (12.0-16.0); Immature Granulocytes % (Auto) 0 % (0-0); Immature Granulocytes Auto 0.03 Thou/mm3 (0.00-0.00); Lymphocytes # (Auto) 0.7 Thou/mm3 (1.0-4.8); Lymphocytes % (Auto) 8 % (10-50); Mean Corpuscular HGB Conc 34.3 g/dl (31.0-37.0); Mean Corpuscular Hemoglobin 29.8 pg (25.0-35.0); Mean Corpuscular Volume 87 fL (80-100); Monocytes # (Auto) 0.5 Thou/mm3 (0.0-0.8); Monocytes % (Auto) 6 % (0-12); Neutrophils % (Auto) 85 % (37-80); Nucleated Red Blood Cell % 0 /100 WBC (0); Platelet Count 398 Thou/mm3 (140-440); RDW Standard Deviation 43.8 fL (36.4-46.3); Red Blood Count 4.59 Miln/mm3 (4.00-5.20); White Blood Count 8.3 Thou/mm3 (3.6-11.0)
[2025-01-02 12:55] LABS: Collection Type, Urine Clean Catch
[2025-01-02 13:12] LABS: Bilirubin,Urine Negative (Negative); Blood,Urine Negative (Negative); Clarity,Urine Clear (Clear/Hazy); Color,Urine Yellow (Lt Yel-Yel); Culture Indicated,Urine Not Indicated; Glucose, Urine Negative (Negative); Ketones,Urine Negative (Negative); Leukocyte Esterase,Urine Negative (Negative); Nitrite,Urine Negative (Negative); PH,Urine 6.5 (5.0-7.0); Protein,Urine Negative (Neg - Trace); RBC,Urine 2 /hpf (0-3); Specific Gravity,Urine 1.014 (1.001-1.035); Squamous Epithelial Cell,Urine 1 /hpf (0-5); Urobilinogen,Urine Negative mg/dL (0.0-1.0); WBC,Urine 2 /hpf (0-5)
[2025-01-02 13:15] LABS: Vitamin B12 478 pg/mL (211-911); Vitamin D 25 Hydroxy Total 38.1 ng/mL (7.3-40.2)
[2025-01-02 13:37] LABS: Alanine Aminotransferase 10 U/L (10-49); Albumin, Serum 4.8 gm/dL (3.4-4.8); Albumin/Globulin Ratio 1.5 (1.2-2.2); Alkaline Phosphatase 96 U/L (46-116); Anion Gap 7 (7-16); Aspartate Amino Transferase 20 U/L (0-34); BUN/Creatinine Ratio 16 Ratio (12-20); Bilirubin,Total 0.5 mg/dL (0.3-1.2); Blood Urea Nitrogen 13 mg/dL (9-23); Calcium 10.2 mg/dL (8.3-10.6); Calcium (Corrected) 10.2 mg/dL (8.5-10.1); Carbon Dioxide 27.3 mMol/L (20.0-31.0); Chloride 97 mMol/L (98-107); Creatinine (Component) 0.8 mg/dL (0.6-1.3); Globulin 3.2 gm/dL (2.3-3.5); Glucose 94 mg/dL (74-106); Osmolality,Calculated 262 (275-295); Potassium 4.6 mMol/L (3.4-5.1); Sodium 131 mMol/L (136-145); Thyroid Stimulating Hormone 3.44 uIU/mL (0.55-4.78); eGFR > 60 See Note
[2025-01-02 14:41] LABS: Glucose Estimated Average 114 mg/dL (80-131); Hemoglobin A1C 5.6 % Hgb (4.8-6.0)
[2025-01-02 16:16] LABS: Cardiac Risk Estimate 2.7 RATIO (3.7-5.6); Cholesterol 231 mg/dL (132-200); HDL Cholesterol 86 mg/dL (40-60); LDL Cholesterol,Calculated 131 mg/dL (0-130); Triglycerides 69 mg/dL (30-150); Uric Acid 5.1 mg/dL (3.1-7.8)
== END | disposition home or self-care (01) ==
LOC: COPL 12:02
PROVIDERS: PCP Internal Medicine; Referring Provider Internal Medicine; Visit Provider Internal Medicine
DX: Z00.00 Encounter for general adult medical examination without abnormal findings (principal); I10 Essential (primary) hypertension; D51.9 Vitamin B12 deficiency anemia, unspecified; E55.9 Vitamin D deficiency, unspecified
CPT/HCPCS: 36415; 80053; 80061; 81001; 82306; 82607; 83036; 84443; 84550; 85025

== ENCOUNTER → 2025-07-24 | Outpatient (CLI) | payer MEDICARE, SELFPAY ==
[2025-07-24 09:55] LABS: Basophils # (Auto) 0.1 Thou/mm3 (0.0-0.2); Basophils % (Auto) 1 % (0-2.5); Eosinophils # (Auto) 0.1 Thou/mm3 (0.0-0.5); Eosinophils % (Auto) 1 % (0-10); Hematocrit 34.1 % (36.0-46.0); Hemoglobin 10.7 g/dL (12.0-16.0); Immature Granulocytes Auto 0.02 Thou/mm3 (0.00-0.00); Lymphocytes # (Auto) 0.9 Thou/mm3 (1.0-4.8); Lymphocytes % (Auto) 10 % (10-50); Mean Corpuscular HGB Conc 31.4 g/dl (31.0-37.0); Mean Corpuscular Hemoglobin 26.8 pg (25.0-35.0); Mean Corpuscular Volume 86 fL (80-100); Monocytes # (Auto) 0.8 Thou/mm3 (0.0-0.8); Monocytes % (Auto) 9 % (0-12); Neutrophils # (Auto) 6.9 Thou/mm3 (1.8-7.7); Neutrophils % (Auto) 80 % (37-80); Nucleated Red Blood Cell # 0.00 Thou/mm3 (0.00-0.00); Nucleated Red Blood Cell % 0 /100 WBC (0); Platelet Count 474 Thou/mm3 (140-440); RDW Standard Deviation 47.8 fL (36.4-46.3); Red Blood Count 3.99 Miln/mm3 (4.00-5.20); White Blood Count 8.6 Thou/mm3 (3.6-11.0)
[2025-07-24 10:21] LABS: Vitamin B12 677 pg/mL (211-911); Vitamin D 25 Hydroxy Total 36.5 ng/mL (7.3-40.2)
[2025-07-24 10:26] LABS: Alanine Aminotransferase 11 U/L (10-49); Albumin, Serum 4.7 gm/dL (3.4-4.8); Albumin/Globulin Ratio 1.4 (1.2-2.2); Alkaline Phosphatase 119 U/L (46-116); Anion Gap 11 (7-16); Aspartate Amino Transferase 22 U/L (0-34); BUN/Creatinine Ratio 20 Ratio (12-20); Bilirubin,Total 0.3 mg/dL (0.3-1.2); Blood Urea Nitrogen 16 mg/dL (9-23); Calcium 9.7 mg/dL (8.3-10.6); Calcium (Corrected) 9.7 mg/dL (8.5-10.1); Carbon Dioxide 27.2 mMol/L (20.0-31.0); Cardiac Risk Estimate 2.2 RATIO (3.7-5.6); Chloride 99 mMol/L (98-107); Cholesterol 200 mg/dL (132-200); Creatinine (Component) 0.8 mg/dL (0.6-1.3); Globulin 3.3 gm/dL (2.3-3.5); Glucose 94 mg/dL (74-106); HDL Cholesterol 89 mg/dL (40-60); LDL Cholesterol,Calculated 97 mg/dL (0-130); Osmolality,Calculated 275 (275-295); Potassium 4.6 mMol/L (3.4-5.1); Sodium 137 mMol/L (136-145); Thyroid Stimulating Hormone 5.91 uIU/mL (0.55-4.78); Total Protein 8.0 gm/dL (5.7-8.2); Triglycerides 69 mg/dL (30-150); eGFR > 60 See Note
[2025-07-24 10:28] LABS: Collection Type, Urine Clean Catch
[2025-07-24 11:17] LABS: Bacteria,Urine Rare; Bilirubin,Urine Negative (Negative); Blood,Urine Negative (Negative); Clarity,Urine Clear (Clear/Hazy); Color,Urine Yellow (Lt Yel-Yel); Glucose, Urine Negative (Negative); Ketones,Urine Negative (Negative); Leukocyte Esterase,Urine Positive (Negative); Nitrite,Urine Negative (Negative); PH,Urine 6.5 (5.0-7.0); Protein,Urine Negative (Neg - Trace); RBC,Urine 5 /hpf (0-3); Specific Gravity,Urine 1.019 (1.001-1.035); Squamous Epithelial Cell,Urine 1 /hpf (0-5); Urobilinogen,Urine Negative mg/dL (0.0-1.0); WBC,Urine 2 /hpf (0-5)
== END | disposition home or self-care (01) ==
LOC: COPL 08:52
PROVIDERS: PCP Internal Medicine; Referring Provider Internal Medicine; Visit Provider Internal Medicine
DX: Z00.00 Encounter for general adult medical examination without abnormal findings (principal); E78.5 Hyperlipidemia, unspecified; I10 Essential (primary) hypertension; D51.9 Vitamin B12 deficiency anemia, unspecified; E55.9 Vitamin D deficiency, unspecified
CPT/HCPCS: 36415; 80053; 80061; 81001; 82306; 82607; 84443; 85025

== ENCOUNTER → 2025-07-25 | Outpatient (CLI) | payer MEDICARE, SELFPAY ==
[2025-07-25 14:36] LABS: OBS Performed By LAB; OBS QC OK? Yes
[2025-07-25 17:16] LABS: OBS Developer Expiration Date 2-28-27; OBS Developer Lot # 4-24-551749; Occult Blood, Stool Negative (Negative); Occult Blood, Stool #2 Negative (Negative); Occult Blood, Stool #3 Negative (Negative)
== END | disposition home or self-care (01) ==
LOC: SLDO 14:29
PROVIDERS: PCP Internal Medicine; Referring Provider Internal Medicine; Visit Provider Internal Medicine
DX: Z12.11 Encounter for screening for malignant neoplasm of colon (principal)
CPT/HCPCS: 82270